=== PATIENT | male | born 1955 | race Caucasian/White ===

== ENCOUNTER → 2018-06-21 | Outpatient (CLI) | payer MEDICARE, OTHER ==
[~2018-06-21] MED LIST: DIAZ5 PO; HYDR1TAB94 PO
[2018-06-29 09:15] LABS: BRUSHITE 0.99 ratio (0.00-3.00); CALCIUM OXALATE 1.97 ratio (0.00-6.00); CHLORIDE URINE 102 (110-250); CITRIC ACID (CITRATE) 137 mg/L (Not Estab.); CITRIC ACID(CITRATE) 438 mg/24 hr (320-1240); CREATININE, URINE 42.5 mg/dL (Not Estab.); MAGNESIUM, URINE 3.6 mg/dL (Not Estab.); MONOSODIUM URATE 1.02 ratio (0.00-4.00); OSMOLALITY, URINE 268 (300-900); SODIUM, URINE 154 (58-337); SODIUM, URINE 48 mmol/L (Not Estab.); STRUVITE 0.03 ratio (0.00-1.00); URIC ACID 0.21 ratio (0.00-1.20); URINE VOLUME 3200 mL/24 hr (800-1800); URINE VOLUME (PRESERVATIVE) 3200 mL/24 hr (800-1800)
== END | disposition home or self-care (01) ==
LOC: LAB SHORT 07:00 → LAB 07:00 → LAB FUT 06-17 10:15 → EDSTATUS 06-17 10:15
PROVIDERS: Urology
DX: N20.2 Calculus of kidney with calculus of ureter (principal)
CPT/HCPCS: 81003; 81050; 82131; 82140; 82340; 82436; 82507; 82570; 83735; 83935; 83945; 84105; 84133; 84300; 84392; 84560

== ENCOUNTER 2018-10-13 16:35 | Observation (INO) | payer MEDICARE, OTHER ==
[~2018-10-13] VITALS: Ht 177.8 cm; Wt 98.0 kg
[2018-10-13 17:09] LABS: BASOPHILS ABSOLUTE AUTO 0.06 K/mm3 (0.00-0.23); BASOPHILS PERCENT AUTO 1 % (0-2); EOSINOPHILS ABSOLUTE AUTO 0.18 K/mm3 (0.00-0.68); EOSINOPHILS PERCENT AUTO 3 % (0-6); Hematocrit 46.8 % (37.0-53.0); Hemoglobin 15.8 g/dL (13.5-17.5); IMMATURE GRAN ABSOLUTE AUTO 0.02 K/mm3 (0.00-0.10); IMMATURE GRAN PERCENT AUTO 0 % (0-1); LYMPHOCYTES ABSOLUTE AUTO 2.38 K/mm3 (0.84-5.20); LYMPHOCYTES PERCENT AUTO 32 % (21-46); MONOCYTES ABSOLUTE AUTO 0.85 K/mm3 (0.16-1.47); MONOCYTES PERCENT AUTO 12 % (4-13); Mean Corpuscular HGB 33.7 pg (26.0-34.0); Mean Corpuscular HGB Conc 33.8 g/dL (31.5-36.5); Mean Corpuscular Volume 100 fL (80-100); NEUTROPHILS ABSOLUTE AUTO 3.85 K/mm3 (1.96-9.15); NEUTROPHILS PERCENT AUTO 52 % (41-73); RDW Coefficient Variation 12.5 % (11.7-14.2); RDW Standard Deviation 46.3 fL (35.1-46.3); Red Blood Cell Count 4.69 M/mm3 (4.30-5.90); White Blood Cell Count 7.34 K/mm3 (4.00-11.30)
[2018-10-13 17:12] LABS: Mean Platelet Volume 10.9 fL (9.1-12.4); Platelet Count 180 K/mm3 (150-400)
[2018-10-13 17:34] LABS: Alanine Aminotransfer (ALT/SGP 26 U/L (12-78); Albumin, Blood 4.1 g/dL (3.4-5.0); Albumin/Globulin Ratio 1.2 (0.8-1.8); Alk Phos 79 U/L (50-136); Anion Gap 6 mmol/L (6-16); Aspartate Aminotrans (AST/SGOT 23 U/L (12-37); Bilirubin, Total 0.5 mg/dL (0.1-1.0); Blood Urea Nitrogen 20 mg/dL (8-24); CO2, Blood 24 mmol/L (21-32); Calcium, Blood 8.5 mg/dL (8.5-10.1); Chloride, Blood 111 mmol/L (98-108); Creatinine, Blood 1.11 mg/dL (0.60-1.20); Globulin, Blood 3.3 g/dL (2.2-4.0); Glomerular Filtration Rate >60 (60-); Glucose, Blood 103 mg/dL (70-99); Potassium, Blood 4.1 mmol/L (3.5-5.5); Sodium, Blood 141 mmol/L (136-145); Total Protein, Blood 7.4 g/dL (6.4-8.2); Troponin I <0.015 ng/mL (0.000-0.040)
[2018-10-13 17:38] LABS: Thyroid Stimulating Hormone 0.832 uIU/mL (0.360-4.800)
[2018-10-14 03:15] LABS: Hematocrit 45.5 % (37.0-53.0); Hemoglobin 15.5 g/dL (13.5-17.5); Mean Corpuscular HGB 33.8 pg (26.0-34.0); Mean Corpuscular HGB Conc 34.1 g/dL (31.5-36.5); Mean Corpuscular Volume 99 fL (80-100); Mean Platelet Volume 10.6 fL (9.1-12.4); Platelet Count 194 K/mm3 (150-400); RDW Coefficient Variation 12.4 % (11.7-14.2); RDW Standard Deviation 45.2 fL (35.1-46.3); Red Blood Cell Count 4.58 M/mm3 (4.30-5.90)
--- NOTE | 2018-10-14 03:21 | NUR ---
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 PT REMAINS IN SINUS RHYTHM. PULSE REGULAR.
[2018-10-14 03:33] LABS: CHOL/HDL RATIO 4.4; Cholesterol 186 mg/dL (50-200); HDL Cholesterol 42 mg/dL (>39); Low Density Lipoprotein Chol 124 mg/dL (0-110); Triglycerides 99 mg/dL (30-160); Very Low Density Lipoprot Chol 19 mg/dL (6-32)
--- NOTE | 2018-10-14 03:55 | NUR ---
SHIFT SUMMARY PT ARRIVED TO FLOOR IN NO DISTRESS. PT HAS BEEN SLEEPING SINCE GETTING SLEEP AID. PT DID CONVERT TO SINUS DURING THE NIGHT. PT HAD NO COMPLAINTS AND IS CURRENTLY SLEEPING. CALL LIGHT IN REACH.
--- NOTE | 2018-10-14 11:29 | NUR ---
Patient is lying in bed and alert with spouse, Kitten bedside. Patient and Kitten shared about their careers, their family and patient's recent medical issues. I facilitated a life review, explored patient's belief system, provided companionship and prayer. Patient and Kitten responded well and displayed evidence of restored anh. Patient voiced appreciation for the visit.
--- NOTE | 2018-10-14 11:48 | NUR ---
Echocardiogram completed.
[2018-10-14] MEDS ORDERED: ASPI81CH PO (15:50)
[2018-10-14] MEDS ORDERED: METO25ER PO (15:51)
--- NOTE | 2018-10-14 15:51 | NUR ---
PATIENT DISCHARGED WITH . RX CALLED INTO [facility]. NO ACUTE ISSUES NOTED. ABLE TO MAKE HIS NEEDS KNOWN.
== END 2018-10-14 14:41 | disposition home or self-care (01) ==
LOC: ER 16:35 → MEDS 16:36
PROVIDERS: Nurse Practitioner Acute Care; Physician Assistant; ADMIT Hospitalist
DX: I48.91 Unspecified atrial fibrillation (principal); I44.7 Left bundle-branch block, unspecified; G47.00 Insomnia, unspecified; Z79.899 Other long term (current) drug therapy
CPT/HCPCS: 36415; 71046; 80053; 80061; 83735; 83880; 84443; 84484; 85025; 85027; 85730; 93005; 93010; 93306; 96365; 96375; 99285-25; A9270-GY; J1644

== ENCOUNTER 2021-03-17 11:42 | Emergency (ER) | payer MEDICARE, OTHER ==
[~2021-03-17] VITALS: Ht 177.8 cm; Wt 95.8 kg
[~2021-03-17 11:42] MED LIST changes: +ASPI81CH PO; +METO25ER PO
[2021-03-17] MEDS ORDERED: TAMS.4ER PO (11:53)
[2021-03-17] MEDS ORDERED: ROSU5 PO (11:54)
[2021-03-17] MEDS ORDERED: XARELTO20 MG PO (11:54)
[2021-03-17 12:21] LABS: BASOPHILS ABSOLUTE AUTO 0.06 K/mm3 (0.00-0.23); BASOPHILS PERCENT AUTO 1 % (0-2); EOSINOPHILS ABSOLUTE AUTO 0.12 K/mm3 (0.00-0.68); EOSINOPHILS PERCENT AUTO 2 % (0-6); Hematocrit 42.2 % (37.0-53.0); Hemoglobin 14.4 g/dL (13.5-17.5); IMMATURE GRAN ABSOLUTE AUTO 0.02 K/mm3 (0.00-0.10); IMMATURE GRAN PERCENT AUTO 0 % (0-1); LYMPHOCYTES ABSOLUTE AUTO 1.78 K/mm3 (0.84-5.20); LYMPHOCYTES PERCENT AUTO 23 % (21-46); MONOCYTES ABSOLUTE AUTO 0.54 K/mm3 (0.16-1.47); MONOCYTES PERCENT AUTO 7 % (4-13); Mean Corpuscular HGB 32.9 pg (26.0-34.0); Mean Corpuscular HGB Conc 34.1 g/dL (31.5-36.5); Mean Corpuscular Volume 96 fL (80-100); Mean Platelet Volume 10.1 fL (9.1-12.4); NEUTROPHILS ABSOLUTE AUTO 5.28 K/mm3 (1.96-9.15); NEUTROPHILS PERCENT AUTO 68 % (41-73); Platelet Count 204 K/mm3 (150-400); RDW Coefficient Variation 12.6 % (11.7-14.2); RDW Standard Deviation 45.2 fL (35.1-46.3); Red Blood Cell Count 4.38 M/mm3 (4.30-5.90)
[2021-03-17 12:39] LABS: Anion Gap 4 mmol/L (6-16); Blood Urea Nitrogen 16 mg/dL (8-24); Bun/Creatinine Ratio 16.6 (12.0-20.0); CO2, Blood 25 mmol/L (21-32); Calcium, Blood 8.9 mg/dL (8.5-10.1); Chloride, Blood 111 mmol/L (98-108); Creatinine, Blood 0.97 mg/dL (0.60-1.20); Glomerular Filtration Rate >60 (60-); Glucose, Blood 158 mg/dL (70-99); Potassium, Blood 4.1 mmol/L (3.5-5.5); Sodium, Blood 140 mmol/L (136-145)
[2021-03-17 12:50] LABS: International Normalized Ratio 1.1; Prothrombin Time Results 11.5 Sec (9.7-11.5)
[2021-03-17 15:28] LABS: SARS-Cov-2 (COVID-19) PCR, MMC NEGATIVE (NEGATIVE)
== END 2021-03-17 18:02 | disposition short-term general hospital (02) ==
LOC: ER 11:42
PROVIDERS: Emergency Medicine; Student in an Organized Health Care Education/Training Program
DX: G93.89 Other specified disorders of brain (principal); T45.515A Adverse effect of anticoagulants, initial encounter; I48.91 Unspecified atrial fibrillation
CPT/HCPCS: 70450; 80048; 85025; 85610; 85730; 86850; 86900; 86901; 93005; 93010; 96365; 96368; 96375; 99285-25; J1100; J1953; J7168; U0004

== ENCOUNTER 2022-06-05 21:38 | Emergency (ER) | payer MEDICARE ==
[~2022-06-05] VITALS: Ht 177.8 cm; Wt 102.5 kg
[~2022-06-05 21:38] MED LIST changes: +ROSU5 PO; +TAMS.4ER PO; +XARELTO20 MG PO
[2022-06-05 22:22] LABS: BASOPHILS ABSOLUTE AUTO 0.05 K/mm3 (0.00-0.23); BASOPHILS PERCENT AUTO 1 % (0-2); EOSINOPHILS ABSOLUTE AUTO 0.23 K/mm3 (0.00-0.68); EOSINOPHILS PERCENT AUTO 2 % (0-6); Hemoglobin 13.6 g/dL (13.5-17.5); IMMATURE GRAN ABSOLUTE AUTO 0.03 K/mm3 (0.00-0.10); IMMATURE GRAN PERCENT AUTO 0 % (0-1); LYMPHOCYTES ABSOLUTE AUTO 2.29 K/mm3 (0.84-5.20); LYMPHOCYTES PERCENT AUTO 24 % (21-46); MONOCYTES ABSOLUTE AUTO 0.87 K/mm3 (0.16-1.47); MONOCYTES PERCENT AUTO 9 % (4-13); Mean Corpuscular HGB 34.2 pg (26.0-34.0); Mean Corpuscular HGB Conc 34.9 g/dL (31.5-36.5); Mean Corpuscular Volume 98 fL (80-100); NEUTROPHILS ABSOLUTE AUTO 6.25 K/mm3 (1.96-9.15); NEUTROPHILS PERCENT AUTO 64 % (41-73); Platelet Count 200 K/mm3 (150-400); RDW Coefficient Variation 12.5 % (11.7-14.2); Red Blood Cell Count 3.98 M/mm3 (4.30-5.90); White Blood Cell Count 9.72 K/mm3 (4.00-11.30)
[2022-06-05 22:58] LABS: Albumin, Blood 3.7 g/dL (3.4-5.0); Albumin/Globulin Ratio 1.2 (0.8-1.8); Bilirubin, Total 0.4 mg/dL (0.1-1.0); Bun/Creatinine Ratio 23.5 (12.0-20.0); Calcium, Blood 8.6 mg/dL (8.5-10.1); Creatinine, Blood 1.02 mg/dL (0.60-1.20); Potassium, Blood 4.3 mmol/L (3.5-5.5); Total Protein, Blood 6.7 g/dL (6.4-8.2)
[2022-06-06] MEDS ORDERED: Prinivil10 MG PO (08:45)
[2022-06-06] MEDS ORDERED: DIAZEPAM5 M2 PO (08:45)
== END 2022-06-06 00:21 | disposition home or self-care (01) ==
LOC: ER 21:38
PROVIDERS: Student in an Organized Health Care Education/Training Program
DX: R07.89 Other chest pain (principal); I48.91 Unspecified atrial fibrillation; Z79.01 Long term (current) use of anticoagulants; Z79.899 Other long term (current) drug therapy
CPT/HCPCS: 36415; 71045; 80053; 83690; 84484; 85025; 93005; 93010; 99283-25

== ENCOUNTER 2024-01-08 07:46 | Day surgery (SDC) | payer MEDICARE, OTHER ==
[~2024-01-08] VITALS: Ht 177.8 cm; Wt 92.1 kg
[~2024-01-08 07:46] MED LIST changes: +AMLO5 PO; +DIAZEPAM5 M2 PO; +DOXE10 PO; +Lactated Ringer's 1,000 ML IV ONE; +Lidocaine 2%-Epineph 1:100000 20 ML MDV ONE; +Prinivil10 MG PO
[2024-01-08] MEDS ORDERED: CeFAZolin Sodium 2,000 MG VIAL ONE (07:50)
[2024-01-08] MEDS ORDERED: NS 50 ML IV ONE (07:59)
[2024-01-08] MEDS ORDERED: CYCL10 PO (08:10)
[2024-01-08] MEDS ORDERED: TEMAZEPAM1511 PO (08:11)
[2024-01-08] MEDS ORDERED: Lactated Ringer's 1,000 ML IV ONE (08:33)
[2024-01-08] MEDS ORDERED: Midazolam HCl 1MG / ML 2ML Vial ONE (08:41)
[2024-01-08] MEDS ORDERED: Bupivacaine HCl 0.25% 30 ML Injection ONE (09:25)
[2024-01-08] MEDS ORDERED: Etomidate 2MG / ML 10ML Vial ONE (09:25)
[2024-01-08] MEDS ORDERED: Lidocaine 2%-Epineph 1:200000 20 ML SDV ONE (09:25)
[2024-01-08] MEDS ORDERED: FentaNYL Citrate 50 MCG/ML 2 ML Injection ONE (09:26)
[2024-01-08] MEDS ORDERED: EPINEPhrine HCl 1 MG/ML 1ML Amp XX ONE (09:54)
[2024-01-08] MEDS ORDERED: Sugammadex Sodium 200 MG/2ML SDV (100 MG/ML) ONE (10:52)
[2024-01-08] MEDS ORDERED: Dexamethasone Sod Phos 10 MG/ML 1ML VIAL ONE (10:52)
[2024-01-08] MEDS ORDERED: Ondansetron HCl 2 MG / ML 2ML Vial ONE (10:52)
[2024-01-08] MEDS ORDERED: Rocuronium Bromide 10 MG/ML 5ML Injection IV ONE (10:52)
[2024-01-08] MEDS ORDERED: Phenylephrine HCl 10mg/ml 1 ml Vial ONE (10:52)
[2024-01-08] MEDS ORDERED: Phenylephrine HCl 100 MCG/ML-NS 10MLSYR (1MG/10ML) ONE (10:52)
[2024-01-08] MEDS ORDERED: SuccINYLCHOLINE Chloride 100 MG/5 ML 5MLSYR ONE (10:52)
--- NOTE | 2024-01-11 11:36 | NUR ---
01/11/24 1136 TELLY WHITE LATE ENTRY CHARTING D/T COMPUTER SYSTEM FAILURE FACILITY WIDE CARE ADMINISTERED BY [email or web address] AND ORD.TCR
--- NOTE | 2024-01-11 11:46 | NUR ---
01/11/24 1146 TELLY WHITE LATE ENTRY CHARTING D/T COMPUTER SYSTEM FAILURE FACILITY WIDE CARE ADMINISTERED BY [facility].KATHY AND DEMI.X
[2024-01-11 11:48] VITALS: BP 134/84
--- NOTE | 2024-01-11 11:48 | NUR ---
01/11/24 1148 TELLY WHITE LATE ENTRY CHARTING D/T COMPUTER SYSTEM FAILURE FACILITY WIDE CARE ADMINISTERED BY [facility].KATHY AND DEMI.X
== END 2024-01-08 12:19 | disposition home or self-care (01) ==
LOC: ORSCSDS 07:46
PROVIDERS: Orthopaedic Surgery
PROC: 0RJJ4ZZ Inspection of Right Shoulder Joint, Percutaneous Endoscopic Approach (ICD-10-PCS; principal; 2024-01-08 09:00)
DX: M25.511 Pain in right shoulder (principal); M75.111 Incomplete rotator cuff tear or rupture of right shoulder, not specified as traumatic; M75.81 Other shoulder lesions, right shoulder; M70.811 Other soft tissue disorders related to use, overuse and pressure, right shoulder; K21.9 Gastro-esophageal reflux disease without esophagitis; I10 Essential (primary) hypertension; I48.91 Unspecified atrial fibrillation; Z79.899 Other long term (current) drug therapy
CPT/HCPCS: C1713; J0171; J0330; J0690; J1100; J2250; J2371; J2405; J3010; J7120